=== PATIENT | male | born 1990 | race African-American/Black ===

== ENCOUNTER 2022-03-10 04:47 | Emergency (ER) | payer MEDICAID, OTHER ==
[~2022-03-10] VITALS: Ht 182.9 cm; Wt 90.0 kg
[~2022-03-10 04:47] MED LIST: HUMALOG; LANTUS; LISINOPRIL; NEURONTIN; NORVAIR; TRUVADA; [UNRECOGNIZED DRUG - OTHER]; [UNRECOGNIZED DRUG - OTHER]
[2022-03-10] MEDS ORDERED: MORPHINE SULFATE 4 MG/ML CPJ (NOT FOR IM USE) IV ONE ×2 (06:15→08:45)
[2022-03-10 06:17] LABS: BASOPHILS % 1.2 % (0.0-2.0); EOSINOPHILS % 0.8 % (0.0-5.0); LYMPHOCYTES % 15.1 % (20.0-50.0); MEAN CORPUSCULAR HEMOGLOBIN 31.5 pg (28.0-32.0); MEAN CORPUSCULAR VOLUME 94.8 fL (80.0-94.0); MEAN PLATELET VOLUME 6.8 fl (7.4-10.4); NEUTROPHILS % 72.9 % (40.0-76.0); PLATELET 260 x1000/uL (130-400); RED BLOOD CELL COUNT 2.85 mill/uL (4.7-6.1); RED CELL DISTRIBUTION WIDTH 18.9 % (11.6-14.6)
[2022-03-10 06:32] LABS: CHLORIDE 104 mEq/L (98-107)
[2022-03-10 14:02] VITALS: BP 169/99
== END 2022-03-10 14:03 | disposition home or self-care (01) ==
LOC: ER 05:02
DX: R10.2 Pelvic and perineal pain (principal); E11.22 Type 2 diabetes mellitus with diabetic chronic kidney disease; I12.0 Hypertensive chronic kidney disease with stage 5 chronic kidney disease or end stage renal disease; N18.6 End stage renal disease; Z21 Asymptomatic human immunodeficiency virus [HIV] infection status; Z20.822 Contact with and (suspected) exposure to COVID-19; Z91.15 Patient's noncompliance with renal dialysis; Z88.8 Allergy status to other drugs, medicaments and biological substances
CPT/HCPCS: 36415; 71045; 74176; 80053; 83605; 83690; 83880; 84484; 85025; 87426; 96374; 96376; 99285; C9803; J2270

== ENCOUNTER 2024-03-16 16:36 | Emergency (ER) | payer MEDICARE, MEDICAID ==
[~2024-03-16] VITALS: Ht 182.9 cm; Wt 71.0 kg
[2024-03-16 16:41] VITALS: BP 182/115; PULSE 116; RESP 16; TEMP 98.6; O2SAT 100
== END 2024-03-16 17:42 | disposition left against medical advice (07) ==
LOC: ER 16:36 → EDBEDREQ 17:03 → ER 17:42
DX: R07.89 Other chest pain (principal); R06.02 Shortness of breath; E11.9 Type 2 diabetes mellitus without complications; I10 Essential (primary) hypertension
CPT/HCPCS: 71045; 93005; 99283

== ENCOUNTER 2025-01-05 14:28 | Inpatient (IN) | payer MEDICARE, MEDICAID ==
[2025-01-05] VITALS (17 sets, daily range): BP systolic 162–196; BP diastolic 73–104; PULSE 98–107; RESP 6–26; TEMP 36.50292–36.9; O2SAT 97–100
[~2025-01-05] VITALS: Ht 177.8 cm; Wt 68.9 kg
[2025-01-05 15:20] LABS: BASOPHILS % 1.4 % (0.0-2.0); EOSINOPHILS % 2.1 % (0.0-5.0); HEMATOCRIT. 40.1 % (42.0-52.0); HEMOGLOBIN. 13.1 g/dL (14.0-18.0); LYMPHOCYTES % 15.8 % (20.0-50.0); MEAN CORPUSCULAR HEMOGLOBIN 29.7 pg (28.0-32.0); MEAN CORPUSCULAR HGB CONC 32.6 g/dL (31.0-37.0); MEAN CORPUSCULAR VOLUME 90.9 fL (80.0-94.0); MEAN PLATELET VOLUME 7.9 fl (7.4-10.4); MONOCYTES % 7.3 % (2.0-8.0); NEUTROPHILS % 73.4 % (40.0-76.0); PLATELET 189 x1000/uL (130-400); RED BLOOD CELL COUNT 4.41 mill/uL (4.7-6.1); RED CELL DISTRIBUTION WIDTH 17.7 % (11.6-14.6); WHITE BLOOD COUNT 7.4 x1000/uL (4.5-11.0)
[2025-01-05 15:34] LABS: CARBON DIOXIDE 24 mEq/L (21-32); CHLORIDE 98 mEq/L (98-107); SODIUM 138 mEq/L (136-145)
[2025-01-05 15:35] LABS: CALCIUM 9.9 mg/dL (8.7-10.4)
[2025-01-05 15:39] LABS: GLUCOSE 108 mg/dL (70-105)
[2025-01-05 15:40] LABS: UREA NITROGEN BLOOD 80 mg/dL (9-23)
[2025-01-05] MEDS: NITROGLYCERIN 50MG PREMIX 250 ML IV SCH (15:40)
[2025-01-05] MEDS: ONDANSETRON 4MG ODT PO STA (15:40)
[2025-01-05] MEDS: MORPHINE SULFATE 4 MG/ML INJ (FOR IV/IM USE) IV STA (15:40)
[2025-01-05 15:41] LABS: ALANINE AMINOTRANSFERASE 32 IU/L (10-49); ALBUMIN 4.7 g/dL (3.2-4.8); ASPARTATE AMINOTRANSFERASE 55 IU/L (<34)
[2025-01-05] MEDS: NITROGLYCERIN 50MG PREMIX 250 ML IV ONE (15:41)
[2025-01-05 15:42] LABS: BILIRUBIN DIRECT 0.1 mg/dL (<=3.0); BILIRUBIN TOTAL 0.4 mg/dL (0.1-1.0); PHOSPHORUS 7.1 mg/dL (2.5-4.9); PROTEIN TOTAL 8.7 g/dL (6.0-8.3)
[2025-01-05 15:54] LABS: ETHANOL BLOOD < 10 mg/dL (<10)
[2025-01-05 15:56] LABS: CREATININE 12.7 mg/dL (0.6-1.3); TROPONIN I HIGH SENSITIVITY 69 ng/L (3.0-53)
[2025-01-05 15:57] LABS: POTASSIUM 7.9 mEq/L (3.5-5.1)
[2025-01-05 16:00] LABS: PROTHROMBIN TIME 10.9 sec (9.6-11.0)
[2025-01-05] MEDS ORDERED: CALCIUM GLUCONATE 1,000 MG in DEXT 5% WATER 100 ML IV ONE (16:00)
[2025-01-05] MEDS ORDERED: ALBUTEROL (0.083%) 2.5MG/3ML NEB HHN SCH (16:00)
[2025-01-05] MEDS: CALCIUM GLUCONATE 1GM PREMIX 50 ML IV NR (16:48)
[2025-01-05] MEDS: SODIUM BICARBONATE 8.4% 50MEQ/50ML SYR IV ONE (16:48)
[2025-01-05] MEDS: DEXTROSE 50% WATER 50ML SYRINGE IV ONE (16:48)
[2025-01-05] MEDS: INSULIN REGULAR (HUMULIN R) 1000UNITS/10ML VIAL IV ONE (16:48)
[2025-01-05 17:25] LABS: TROPONIN I HIGH SENSITIVITY 73 ng/L (3.0-53)
[2025-01-05] MEDS: NICARDIPINE 40MG/200ML PREMIX 200 ML IV PRN ×2 (18:18→21:15)
[2025-01-05] MEDS ORDERED: ACETAMINOPHEN 325MG TABLET PO PRN (21:00)
[2025-01-05] MEDS ORDERED: NALOXONE HCL 0.4MG/ML VIAL IV PRN (21:15)
[2025-01-05] MEDS: MORPHINE SULFATE 2 MG/ML INJ (NOT FOR IM USE) IV PRN (21:23)
[2025-01-05] MEDS ORDERED: NITROGLYCERIN 50MG PREMIX 250 ML IV PRN (22:00)
[2025-01-06] VITALS (54 sets, daily range): BP systolic 133–188; BP diastolic 69–108; PULSE 76–107; RESP 11–28; TEMP 36.2–36.7; O2SAT 89–100
[2025-01-06 00:32] LABS: HEPATITIS B SURFACE ANTIGEN NEGATIVE (Negative)
[2025-01-06 00:35] LABS: CHLORIDE 100 mEq/L (98-107); POTASSIUM 3.8 mEq/L (3.5-5.1); SODIUM 141 mEq/L (136-145)
[2025-01-06 00:36] LABS: CARBON DIOXIDE 27 mEq/L (21-32)
[2025-01-06 00:41] LABS: GLUCOSE 100 mg/dL (70-105); UREA NITROGEN BLOOD 45 mg/dL (9-23)
[2025-01-06 00:53] LABS: HEPATITIS A AB IGM NEGATIVE (Negative); HEPATITIS B CORE AB IGM NEGATIVE (Negative)
[2025-01-06 00:54] LABS: HEPATITIS C AB NON REACTIVE (Neg) (Negative)
[2025-01-06] MEDS: HYDRALAZINE 20MG/ML VIAL IV PRN (02:10)
[2025-01-06] MEDS ORDERED: ZOLPIDEM TARTRATE 5MG TABLET PO PRN (03:15)
[2025-01-06] MEDS ORDERED: ONDANSETRON HCL 4MG/2ML INJ IV PRN (03:15)
[2025-01-06] MEDS ORDERED: ACETAMINOPHEN 325MG TABLET PO PRN ×2 (03:15)
[2025-01-06] MEDS ORDERED: HYDRALAZINE 20MG/ML VIAL IV PRN (03:15)
[2025-01-06] MEDS ORDERED: DIPHENHYDRAMINE 50MG/ML VIAL IV PRN (03:15)
[2025-01-06] MEDS: CLONIDINE 0.2MG TABLET PO SCH (05:22)
[2025-01-06] MEDS: SODIUM CHLORIDE 0.9% 3ML FLUSH IVF SCH (05:23)
[2025-01-06 06:05] LABS: BASOPHILS % 1.2 % (0.0-2.0); HEMOGLOBIN. 12.4 g/dL (14.0-18.0); LYMPHOCYTES % 17.4 % (20.0-50.0); MEAN CORPUSCULAR HEMOGLOBIN 29.4 pg (28.0-32.0); MEAN CORPUSCULAR HGB CONC 32.6 g/dL (31.0-37.0); MEAN CORPUSCULAR VOLUME 90.2 fL (80.0-94.0); MEAN PLATELET VOLUME 8.2 fl (7.4-10.4); MONOCYTES % 11.1 % (2.0-8.0); NEUTROPHILS % 69.3 % (40.0-76.0); PLATELET 170 x1000/uL (130-400); RED BLOOD CELL COUNT 4.21 mill/uL (4.7-6.1); RED CELL DISTRIBUTION WIDTH 17.9 % (11.6-14.6); WHITE BLOOD COUNT 6.1 x1000/uL (4.5-11.0)
[2025-01-06 06:24] LABS: CHLORIDE 97 mEq/L (98-107); POTASSIUM 4.4 mEq/L (3.5-5.1); SODIUM 140 mEq/L (136-145)
[2025-01-06 06:25] LABS: CARBON DIOXIDE 26 mEq/L (21-32)
[2025-01-06 06:30] LABS: GLUCOSE 98 mg/dL (70-105); UREA NITROGEN BLOOD 50 mg/dL (9-23)
[2025-01-06 06:42] LABS: CREATININE 9.4 mg/dL (0.6-1.3)
[2025-01-06] MEDS: MINOXIDIL 2.5MG TABLET PO SCH (09:53)
[2025-01-06] MEDS: NIFEDIPINE XL 60MG TAB PO SCH (09:54)
[2025-01-06] MEDS: VANCOMYCIN 1G PREMIX 200 ML IV SCH (17:07)
[2025-01-06] MEDS: CLONIDINE 0.1MG TABLET PO PRN (17:09)
[2025-01-07] VITALS (13 sets, daily range): BP systolic 133–190; BP diastolic 67–99; PULSE 77–99; RESP 18–22; TEMP 36.1–37; O2SAT 95–99
== END 2025-01-07 20:10 | disposition home or self-care (01) | DRG 640 ==
LOC: ER 14:28 → MICUSO 20:00 → 7WST 01-06 18:51
PROVIDERS: ADMIT Internal Medicine; ATTEND Internal Medicine
PROC: 5A1D70Z Performance of Urinary Filtration, Intermittent, Less than 6 Hours Per Day (ICD-10-PCS; principal; 2025-01-05)
PROC: 5A1D70Z Performance of Urinary Filtration, Intermittent, Less than 6 Hours Per Day (ICD-10-PCS; 2025-01-07)
DX: E87.5 Hyperkalemia (principal); I50.33 Acute on chronic diastolic (congestive) heart failure; N18.6 End stage renal disease; I16.1 Hypertensive emergency; I13.2 Hypertensive heart and chronic kidney disease with heart failure and with stage 5 chronic kidney disease, or end stage renal disease; L03.211 Cellulitis of face; L02.818 Cutaneous abscess of other sites; E11.43 Type 2 diabetes mellitus with diabetic autonomic (poly)neuropathy; E11.22 Type 2 diabetes mellitus with diabetic chronic kidney disease; K31.84 Gastroparesis; L73.8 Other specified follicular disorders
CPT/HCPCS: 36415; 71045; 74176; 80048; 80076; 80320; 82962; 83735; 83880; 84100; 84484; 85025; 86705; 86709; 87340; 90935; 93005; 99291; A4606; J0360; J0610; J1815; J2270; J3370; J3490; J7060; Q0162; G0480

== ENCOUNTER 2025-01-10 15:23 | Inpatient (IN) | payer MEDICARE, MEDICAID ==
[~2025-01-10] VITALS: Ht 175.3 cm; Wt 75.7 kg
[2025-01-10 16:23] LABS: BASOPHILS % 1.2 % (0.0-2.0); EOSINOPHILS % 0.2 % (0.0-5.0); HEMATOCRIT. 37.4 % (42.0-52.0); HEMOGLOBIN. 11.9 g/dL (14.0-18.0); LYMPHOCYTES % 7.1 % (20.0-50.0); MEAN CORPUSCULAR HEMOGLOBIN 28.8 pg (28.0-32.0); MEAN CORPUSCULAR HGB CONC 31.9 g/dL (31.0-37.0); MEAN CORPUSCULAR VOLUME 90.4 fL (80.0-94.0); MEAN PLATELET VOLUME 8.2 fl (7.4-10.4); MONOCYTES % 11.4 % (2.0-8.0); NEUTROPHILS % 80.1 % (40.0-76.0); PLATELET 183 x1000/uL (130-400); RED BLOOD CELL COUNT 4.13 mill/uL (4.7-6.1); RED CELL DISTRIBUTION WIDTH 16.9 % (11.6-14.6); WHITE BLOOD COUNT 4.9 x1000/uL (4.5-11.0)
[2025-01-10 16:32] LABS: CHLORIDE 96 mEq/L (98-107); POTASSIUM 4.6 mEq/L (3.5-5.1); SODIUM 138 mEq/L (136-145)
[2025-01-10 16:33] LABS: CALCIUM 9.9 mg/dL (8.7-10.4); CARBON DIOXIDE 25 mEq/L (21-32); PROTHROMBIN TIME 11.1 sec (9.6-11.0)
[2025-01-10 16:38] LABS: ETHANOL BLOOD < 10 mg/dL (<10); GLUCOSE 117 mg/dL (70-105); UREA NITROGEN BLOOD 53 mg/dL (9-23)
[2025-01-10 16:40] LABS: ALANINE AMINOTRANSFERASE 19 IU/L (10-49); ALBUMIN 4.2 g/dL (3.2-4.8); ASPARTATE AMINOTRANSFERASE 17 IU/L (<34); BILIRUBIN DIRECT 0.1 mg/dL (<=3.0); BILIRUBIN TOTAL 0.4 mg/dL (0.1-1.0); PROTEIN TOTAL 7.9 g/dL (6.0-8.3)
[2025-01-10] MEDS: VANCOMYCIN 1G PREMIX 200 ML IV ONE (16:50)
[2025-01-10] MEDS: ACETAMINOPHEN 325MG TABLET PO STA (16:50)
[2025-01-10] MEDS: PIPERACILLIN/TAZO 3.375G/50ML 50 ML IV ONE (16:50)
[2025-01-10] MEDS: HYDRALAZINE 20MG/ML VIAL IV ONE (16:50)
[2025-01-10 16:51] LABS: CREATININE 10.3 mg/dL (0.6-1.3)
[2025-01-10 16:52] LABS: TROPONIN I HIGH SENSITIVITY 62 ng/L (3.0-53)
[2025-01-10] MEDS: ONDANSETRON HCL 4MG/2ML INJ IV ONE (17:10)
[2025-01-10] MEDS: ASPIRIN 325MG TABLET PO ONE (17:58)
[2025-01-10 19:39] VITALS: BP 173/68; PULSE 80; RESP 20; TEMP 36.7
[2025-01-10] MEDS ORDERED: HYDRALAZINE 20MG/ML VIAL IV PRN (19:45)
[2025-01-10] MEDS ORDERED: VANCOMYCIN 1G PREMIX 200 ML IV SCH (19:45)
[2025-01-10] MEDS ORDERED: ZOLPIDEM TARTRATE 5MG TABLET PO PRN (19:45)
[2025-01-10] MEDS ORDERED: CLONIDINE 0.1MG TABLET PO PRN ×2 (19:45→23:45)
[2025-01-10] MEDS ORDERED: DIPHENHYDRAMINE 50MG/ML VIAL IV PRN (19:45)
[2025-01-10] MEDS ORDERED: GUAIFENESIN 200MG/10ML SUGAR FREE UDC PO PRN (19:45)
[2025-01-10 20:00] VITALS: BP 173/91; PULSE 94; RESP 18; TEMP 36.4; O2SAT 97
[2025-01-10] MEDS: PIPERACILLIN/TAZO 3.375G/50ML 50 ML IV SCH (21:17)
[2025-01-10] MEDS: MINOXIDIL 2.5MG TABLET PO SCH (21:18)
[2025-01-10] MEDS: NIFEDIPINE XL 60MG TAB PO SCH (21:18)
[2025-01-10] MEDS ORDERED: NALOXONE HCL 0.4MG/ML VIAL IV PRN (21:30)
[2025-01-10] MEDS: ONDANSETRON HCL 4MG/2ML INJ IV PRN (21:35)
[2025-01-10] MEDS: CLONIDINE 0.1MG TABLET PO SCH (21:36)
[2025-01-10] MEDS: VANCOMYCIN 1GM/200ML PMX (BAXTER) IV NR (21:50)
[2025-01-10] MEDS: SODIUM CHLORIDE 0.9% 3ML FLUSH IVF SCH (21:52)
[2025-01-11] VITALS (12 sets, daily range): BP systolic 111–189; BP diastolic 65–99; PULSE 68–111; RESP 18–22; TEMP 36.6696–39.6; O2SAT 94–98
[2025-01-11] MEDS: HYDRALAZINE 20MG/ML VIAL IV PRN (01:07)
[2025-01-11] MEDS: MORPHINE SULFATE 2 MG/ML INJ (NOT FOR IM USE) IV PRN (01:08)
[2025-01-11] MEDS ORDERED: IPRATROPIUM BROMIDE (0.02%) 0.5MG/2.5ML NEB ONE (01:53)
[2025-01-11] MEDS: IPRATROPIUM BROMIDE (0.02%) 0.5MG/2.5ML NEB HHN PRN (02:01)
[2025-01-11] MEDS: ACETAMINOPHEN 325MG TABLET PO PRN (05:23)
[2025-01-11 13:22] LABS: HEPATITIS B SURFACE ANTIGEN NEGATIVE (Negative)
[2025-01-11 13:43] LABS: HEPATITIS A AB IGM NEGATIVE (Negative)
[2025-01-11 13:44] LABS: HEPATITIS B CORE AB IGM NEGATIVE (Negative); HEPATITIS C AB NON REACTIVE (Neg) (Negative)
[2025-01-11] MEDS: SENNOSIDES 8.6MG TABLET PO SCH (21:00)
[2025-01-11] MEDS: LACTULOSE 20G/30ML UDC PO SCH (21:50)
[2025-01-12] VITALS (9 sets, daily range): BP systolic 115–180; BP diastolic 43–92; PULSE 74–114; RESP 18–22; TEMP 36.7–38.9; O2SAT 92–100
[2025-01-12] MEDS: ACETAMINOPHEN 325MG TABLET PO PRN (02:08)
[2025-01-12] MEDS: CLONIDINE 0.2MG TABLET PO SCH (14:15)
[2025-01-13] VITALS (13 sets, daily range): BP systolic 104–170; BP diastolic 50–91; PULSE 76–103; RESP 18–22; TEMP 36.4–38.39196; O2SAT 91–98
[2025-01-13 09:56] LABS: INFLUENZA TYPE A Presumptive Negative (Pres. Neg.); INFLUENZA TYPE B Presumptive Negative (Pres. Neg.)
[2025-01-13] MEDS ORDERED: LIDOCAINE HCL 1% 10 MG/ML 10ML VIAL ONE (12:11)
[2025-01-13 16:56] LABS: BASOPHILS % 0.5 % (0.0-2.0); EOSINOPHILS % 0.4 % (0.0-5.0); HEMATOCRIT. 34.2 % (42.0-52.0); HEMOGLOBIN. 11.1 g/dL (14.0-18.0); LYMPHOCYTES % 7.9 % (20.0-50.0); MEAN CORPUSCULAR HEMOGLOBIN 28.9 pg (28.0-32.0); MEAN CORPUSCULAR HGB CONC 32.5 g/dL (31.0-37.0); MEAN CORPUSCULAR VOLUME 89.1 fL (80.0-94.0); MEAN PLATELET VOLUME 8.2 fl (7.4-10.4); MONOCYTES % 10.4 % (2.0-8.0); NEUTROPHILS % 80.8 % (40.0-76.0); PLATELET 162 x1000/uL (130-400); RED BLOOD CELL COUNT 3.83 mill/uL (4.7-6.1); RED CELL DISTRIBUTION WIDTH 16.5 % (11.6-14.6)
[2025-01-13 17:06] LABS: POTASSIUM 5.9 mEq/L (3.5-5.1)
[2025-01-13 17:07] LABS: CALCIUM 9.8 mg/dL (8.7-10.4)
[2025-01-13 17:13] LABS: CREATININE 13.2 mg/dL (0.6-1.3)
[2025-01-14] VITALS (14 sets, daily range): BP systolic 100–147; BP diastolic 50–82; PULSE 82–104; RESP 20–22; TEMP 36.6696–38.39196; O2SAT 94–100
[2025-01-14 06:27] LABS: CREATINE KINASE 78 IU/L (46-171)
[2025-01-15] VITALS (8 sets, daily range): BP systolic 116–157; BP diastolic 74–86; PULSE 80–110; RESP 18–20; TEMP 36.3–38.3; O2SAT 89–100
[2025-01-15 04:08] LABS: *HIV-1 RNA BY PCR <20 copies/mL (.)
[2025-01-15 06:11] LABS: BASOPHILS % 0.8 % (0.0-2.0); EOSINOPHILS % 3.6 % (0.0-5.0); HEMATOCRIT. 31.3 % (42.0-52.0); HEMOGLOBIN. 10.5 g/dL (14.0-18.0); LYMPHOCYTES % 12.2 % (20.0-50.0); MEAN CORPUSCULAR HEMOGLOBIN 29.1 pg (28.0-32.0); MEAN CORPUSCULAR HGB CONC 33.5 g/dL (31.0-37.0); MEAN CORPUSCULAR VOLUME 86.9 fL (80.0-94.0); MEAN PLATELET VOLUME 8.1 fl (7.4-10.4); MONOCYTES % 7.2 % (2.0-8.0); NEUTROPHILS % 76.2 % (40.0-76.0); PLATELET 178 x1000/uL (130-400); RED CELL DISTRIBUTION WIDTH 16.3 % (11.6-14.6); WHITE BLOOD COUNT 5.5 x1000/uL (4.5-11.0)
[2025-01-15 06:27] LABS: CALCIUM 9.9 mg/dL (8.7-10.4)
[2025-01-15 06:48] LABS: CREATININE 6.8 mg/dL (0.6-1.3)
[2025-01-15] MEDS: VANCOMYCIN 500MG PREMIX 100 ML IV SCH (14:35)
[2025-01-15] MEDS: BISACODYL 10MG SUPP PR PRN (14:35)
[2025-01-16] VITALS (13 sets, daily range): BP systolic 127–159; BP diastolic 76–99; PULSE 88–108; RESP 18–20; TEMP 36.2–38.2; O2SAT 90–98
[2025-01-16] MEDS ORDERED: IPRATROPIUM/ALBUTEROL 0.5-3(2.5)MG/3ML NEB ONE (08:12)
[2025-01-16 09:07] LABS: ABSOLUTE EOSINOPHILS 0.3 x10E3/uL (0.0-0.4); ABSOLUTE LYMPHOCYTES 0.9 x10E3/uL (0.7-3.1); ABSOLUTE MONOCYTES 0.5 x10E3/uL (0.1-0.9); ABSOLUTE NEUTROPHILS 5.6 x10E3/uL (1.4-7.0); BASOPHILS 1 % (Not Estab.); EOSINOPHILS 4 % (Not Estab.); HEMATOCRIT 34.1 % (37.5-51.0); HEMOGLOBIN 11.6 g/dL (13.0-17.7); IMMATURE GRANULOCYTES 2 % (Not Estab.); IMMATURE GRANULOCYTES ABSOLUTE 0.1 x10E3/uL (0.0-0.1); LYMPHOCYTES 12 % (Not Estab.); MEAN CORPUSCULAR HEMOGLOBIN 29.7 pg (26.6-33.0); MEAN CORPUSCULAR VOLUME 87 fL (79-97); MONOCYTES 7 % (Not Estab.); NEUTROPHILS 74 % (Not Estab.); PLATELETS 213 x10E3/uL (150-450); WBC 7.5 x10E3/uL (3.4-10.8)
[2025-01-16] MEDS: IPRATROPIUM/ALBUTEROL 0.5-3(2.5)MG/3ML NEB HHN SCH (11:53)
[2025-01-16 13:07] LABS: % CD 3 POS. LYMPHOCYTES 82.6 % (57.5-86.2); % CD 4 POS. LYMPHOCYTES 30.5 % (30.8-58.5); % CD 8 POS. LYMPH 50.9 % (12.0-35.5); ABSOLUTE CD 3 743 /uL (622-2402); ABSOLUTE CD 4 HELPER 275 /uL (359-1519); ABSOLUTE CD 8 SUPPRESSOR 458 /uL (109-897)
== END 2025-01-16 15:53 | disposition left against medical advice (07) | DRG 871 ==
LOC: ER 15:23 → EDBEDREQ 15:51 → 8WST 20:18
PROVIDERS: ADMIT Internal Medicine; ATTEND Internal Medicine
PROC: 5A1D70Z Performance of Urinary Filtration, Intermittent, Less than 6 Hours Per Day (ICD-10-PCS; 2025-01-11)
PROC: 5A1D70Z Performance of Urinary Filtration, Intermittent, Less than 6 Hours Per Day (ICD-10-PCS; 2025-01-12)
PROC: 02HV33Z Insertion of Infusion Device into Superior Vena Cava, Percutaneous Approach (ICD-10-PCS; principal; 2025-01-13)
PROC: B548ZZA Ultrasonography of Superior Vena Cava, Guidance (ICD-10-PCS; 2025-01-13)
PROC: 5A1D70Z Performance of Urinary Filtration, Intermittent, Less than 6 Hours Per Day (ICD-10-PCS; 2025-01-13)
PROC: 5A1D70Z Performance of Urinary Filtration, Intermittent, Less than 6 Hours Per Day (ICD-10-PCS; 2025-01-14)
PROC: 5A1D70Z Performance of Urinary Filtration, Intermittent, Less than 6 Hours Per Day (ICD-10-PCS; 2025-01-16)
DX: A41.9 Sepsis, unspecified organism (principal); I50.33 Acute on chronic diastolic (congestive) heart failure; N18.6 End stage renal disease; J18.9 Pneumonia, unspecified organism; I13.2 Hypertensive heart and chronic kidney disease with heart failure and with stage 5 chronic kidney disease, or end stage renal disease; L03.90 Cellulitis, unspecified; Z20.822 Contact with and (suspected) exposure to COVID-19; Z53.29 Procedure and treatment not carried out because of patient's decision for other reasons; E11.22 Type 2 diabetes mellitus with diabetic chronic kidney disease; L73.8 Other specified follicular disorders; K59.09 Other constipation; Z99.2 Dependence on renal dialysis
CPT/HCPCS: 36415; 36556; 71045; 74176; 76937; 80048; 80076; 80202; 80320; 82550; 83605; 83880; 84145; 84443; 84484; 85025; 85651; 86359; 86360; 86705; 86709; 86850; 86900; 87340; 87426; 87536; 87804; 90935; 93005; 93306; 94070; 94640; 99291; A4606; C1752; J0360; J2003; J2270; J2405; J2543; J3370; G0480